=== PATIENT | male | born 1995 | race Caucasian/White ===

== ENCOUNTER 2017-10-07 01:42 | Emergency (ER) | payer OTHER ==
[~2017-10-07] VITALS: Ht 182.9 cm; Wt 86.9 kg
[2017-10-07] MEDS ORDERED: ULTRAM50 MG PO (02:59)
[2017-10-07 03:11] VITALS: BP 130/88
== END 2017-10-07 03:11 | disposition home or self-care (01) ==
LOC: EXP 01:42 → EME 01:42 → EXP 03:11
PROC: 2W3DX1Z Immobilization of Left Lower Arm using Splint (ICD-10-PCS; principal; 2017-10-07)
DX: M79.642 Pain in left hand (principal); R20.2 Paresthesia of skin; W22.8XXA Striking against or struck by other objects, initial encounter; Y99.0 Civilian activity done for income or pay
CPT/HCPCS: 73110; 73130